=== PATIENT | female | born 2000 | race Two or more races ===

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

== ENCOUNTER 2022-04-05 18:30 | Emergency (ER) | payer BC, SELFPAY ==
--- NOTE | 2022-04-05 18:34 | ED.URI ---
HPI - URI/Sore Throat General Chief Complaint: Upper Respiratory Infection Stated Complaint: uri Time Seen by Provider: 04/05/22 18:47 Source: patient and RN notes reviewed Mode of arrival: ambulatory Limitations: no limitations History of Present Illness HPI Narrative: 22 year old female presents with concern for 1 week history of nasal congestion, sinus pressure, and cough. She reports she has been taking OTC meds, sinus flushes without relief. She reports she had fever and chills when her symptoms started. MD elicited complaint: cough and nasal congestion Related Data Allergies Allergy/AdvReac Type Severity Reaction Status Date / Time No Known Allergies Allergy Verified 04/05/22 18:34 Review of Systems Review of Systems: CONSTITUTIONAL: Reports malaise, chills, sweats, or fever. EYES: Denies visual changes, redness, or discharge. ENT: Reports rhinorrhea, congestion, sinus pain, otalgia and sore throat. CARDIOVASCULAR: Denies chest pain, palpitations, or edema. RESPIRATORY: Reports cough. Denies dyspnea. GASTROINTESTINAL: Denies abdominal pain, nausea, vomiting, diarrhea SKIN: Denies rash or itching. MUSCULOSKELETAL: Reports myalgia. NEUROLOGIC: Denies headache. All systems reviewed & are unremarkable except as noted in HPI and below PMFSH Social History Social History Gender identity (if verbalized by the patient): Female Comments At time of signature, agree with nursing past medical, surgical, social and family history. There is no relevant family history pertinent to the presenting complaint Exam Narrative: GENERAL: Non-toxic appearing and in no acute distress. HEAD: Normocephalic EYES: PERRLA, conjunctivae clear ENT: Nares clear, turbinates edematous and erythematous, sinus tenderness. Mucous membranes moist. TM pearly casey with dull light reflex bilaterally; no tragal tenderness. Oropharynx not erythematous without lesions. Tonsils not enlarged and without exudate, no drooling, no hoarseness, no trismus, uvula midline. NECK: Supple. No lymphadenopathy CHEST: Clear to auscultation, breath sounds equal. No wheezing, rhonchi, rales, or stridor. No respiratory distress, speaks in full sentences. HEART: Regular rate and rhythm. No murmur heard. SKIN: Warm, dry, no rash. NEURO: Alert and oriented x3. PSYCH: Normal mood and affect Course Course Emergency Course: Patient is aware of diagnosis, understands and agrees to treatment plan. Anticipatory guidance given. Patient agrees to follow-up as directed and is aware of reasons to seek care at the emergency department. Portions of this record may have been created with voice recognition software Level of Care: Express Care Visit Vital Signs Vital signs: Reviewed. MDM - URI/Sore Throat MDM Narrative Medical decision making narrative: Differential diagnosis considered: Peterson virus, strep pharyngitis, allergic rhinitis, upper respiratory tract infection, sinusitis, rhinosinusitis, nasopharyngitis. viral pharyngitis, otitis media, otitis externa, pneumonia, bronchitis, viral cough syndrome, viral syndrome, and influenza. Exam findings show no acute concerns or changes; patient is non-toxic appearing and is in no distress. Patient is appropriate for outpatient treatment and follow-up. Lab Data Attestation: I reviewed the patient's lab results. Critical Care Time Critical Care Time Critical Care Time: No Discharge Plan Discharge Clinical Impression: Acute bacterial sinusitis Patient Disposition: Home, Self-Care Condition: Stable Instructions: Antibiotic Form, Sinusitis (ED) Additional Instructions: Take medications as prescribed Nonprescription pain medications, such as acetaminophen (eg, Tylenol) or ibuprofen (eg, Motrin, Advil), are recommended for pain. Flushing the nose and sinuses with a saline solution several times per day has been proven to decrease pain associated with congestion and shorten the duration of symptoms. Nasal steroids
[2022-04-05 18:43] VITALS: BP 153/75; PULSE 76; RESP 16; TEMP 36.9; O2SAT 99
== END 2022-04-05 18:48 | disposition home or self-care (01) ==
PROVIDERS: Emergency Provider Nurse Practitioner
DX: J01.90 Acute sinusitis, unspecified (principal); J45.990 Exercise induced bronchospasm
CPT/HCPCS: 99213; G0463

== ENCOUNTER 2022-06-10 21:37 | Emergency (ER) | payer BC, SELFPAY ==
--- NOTE | ~2022-06-10 | XR_ITS ---
XR shoulder RT min 2V 06/10/2022 22:06 INDICATION: Right shoulder pain after fall PROCEDURE: 4 views right shoulder COMPARISON: No prior studies for comparison. FINDINGS: Fracture, dislocation or subluxation is not identified. The soft tissues appear within norm al limits. No foreign bodies are identified. IMPRESSION: 1: NO ACUTE BONE OR JOINT ABNORMALITY IDENTIFIED. Reviewed, dictated and finalized at location A.
--- NOTE | ~2022-06-10 | XR_ITS ---
XR finger 5th LT min 2V 06/10/2022 22:05 INDICATION: Left fifth finger pain PROCEDURE: 3 views left fifth finger COMPARISON: No prior studies for comparison. FINDINGS: Fracture, dislocation or subluxation is not identified. The soft tissues appear within norm al limits. No foreign bodies are identified. IMPRESSION: 1: NO ACUTE BONE OR JOINT ABNORMALITY IDENTIFIED. Reviewed, dictated and finalized at location A.
[2022-06-10 21:42] VITALS: BP 181/86; PULSE 89; RESP 18; TEMP 36.6; O2SAT 99
--- NOTE | 2022-06-11 00:20 | ED.GENADULT ---
HPI - General Adult General Chief complaint: Extremity Injury, Upper Stated complaint: right shoulder pain Time Seen by Provider: 06/10/22 23:43 History of Present Illness HPI narrative: 22-year-old female presenting ED with a chief complaint of shoulder pain. She was taking a shower when she slipped and fell. She landed on her right shoulder. She also hurt her left pinky. He did not take anything for pain control. She has been able to move the arm and the pinky although it is painful to move. Denies head trauma or other injuries. Related Data Allergies Allergy/AdvReac Type Severity Reaction Status Date / Time No Known Allergies Allergy Verified 06/10/22 21:42 [facility] Social History Social History Gender identity (if verbalized by the patient): Female Exam Narrative: APPEARANCE: No apparent distress. Patient is pleasant polite during the interview Head: atraumatic. EYES: EOMI, NOSE: Atraumatic NECK: Trachea midline RESPIRATORY: No increased rate of breathing CARDIOVASCULAR: RRR, ABDOMINAL: Non-distended MUSCULOSKELETAl: exam of the right shoulder revealed tenderness to palpation along the right trapezius and posterior deltoid. Patient is able to fully range the shoulder although there is some pain. Elbow and hand exams are normal. Focal exam of the left hand reveals some swelling along the pinky. Flexion and extension are intact. Cap refills less than 2 seconds. Sensation intact. NEURO: Alert. Moving 4/4 extremities SKIN:: Warm, dry. Normal color PSYCHIATRIC: Normal affect Course Vital Signs Vital signs: Vital Signs Temperature 97.9 F 06/10/22 21:42 Pulse Rate 89 06/10/22 21:42 Respiratory Rate 18 06/10/22 21:42 Blood Pressure 181/86 H 06/10/22 21:42 Pulse Oximetry 99 06/10/22 21:42 Oxygen Delivery Room Air 06/10/22 21:42 Temperature 97.9 F 06/10/22 21:42 Pulse Rate 89 06/10/22 21:42 Respiratory Rate 18 06/10/22 21:42 Blood Pressure 181/86 H 06/10/22 21:42 Pulse Oximetry 99 06/10/22 21:42 Oxygen Delivery Room Air 06/10/22 21:42 Medical Decision Making MDM Narrative Medical decision making narrative: -Presentation: 22-year-old female presenting ED after fall. 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 -External Chart Review: None -Hx from independent Sources: Mario-cousin at bedside -Discussion of Management/Consultants: none -Independent interpretation of studies: x-rays of the shoulder and left pinky were negative for acute fracture. Dx tests considered but not ordered: None -Procedures: none -Interventions: Motrin, Tylenol, Robaxin -Shared decision making / Disposition: patient's x-rays were negative for acute fracture. No significant exam findings. Patient will be discharged with NSAIDs and primary care follow-up. -RX Motrin, Tylenol, Robaxin Vital Signs Vital Signs: Vital Signs Temperature 97.9 F 06/10/22 21:42 Pulse Rate 89 06/10/22 21:42 Respiratory Rate 18 06/10/22 21:42 Blood Pressure 181/86 H 06/10/22 21:42 Pulse Oximetry 99 06/10/22 21:42 Oxygen Delivery Room Air 06/10/22 21:42 Temperature 97.9 F 06/10/22 21:42 Pulse Rate 89 06/10/22 21:42 Respiratory Rate 18 06/10/22 21:42 Blood Pressure 181/86 H 06/10/22 21:42 Pulse Oximetry 99 06/10/22 21:42 Oxygen Delivery Room Air 06/10/22 21:42 Discharge Plan Discharge Clinical Impression: Acute shoulder pain, Finger pain Patient Disposition: Home, Self-Care Condition: Stable Instructions: Antibiotic Form, Shoulder Pain (ED) Additional Instructions: You were seen in the emergency department after a fall. please take Motrin Tylenol Robaxin for pain control. Should not take ibuprofen if .
[2022-06-11] MEDS: ACETAMINOPHEN 500 MG TABLET 1000 MG PO (00:34)
[2022-06-11] MEDS: IBUPROFEN 400 MG TABLET 800 MG PO (00:34)
[2022-06-11] MEDS: methocarbamoL 750 MG TABLET 1500 MG PO (00:34)
== END 2022-06-11 00:45 | disposition home or self-care (01) ==
PROVIDERS: Emergency Provider Emergency Medicine
DX: S49.91XA Unspecified injury of right shoulder and upper arm, initial encounter (principal); S69.92XA Unspecified injury of left wrist, hand and finger(s), initial encounter; W18.2XXA Fall in (into) shower or empty bathtub, initial encounter
CPT/HCPCS: 73030; 73140; 81025; 99284; A9270

== ENCOUNTER 2022-07-08 09:57 | Emergency (ER) | payer BC, SELFPAY ==
[2022-07-08 10:02] VITALS: BP 146/78; PULSE 70; RESP 16; TEMP 36.6; O2SAT 100
[2022-07-08 10:07] VITALS: BP 146/78; PULSE 70; RESP 16; TEMP 36.6; O2SAT 100
--- NOTE | 2022-07-08 10:33 | ED.ABDPAIN ---
HPI - Abdominal Pain General Chief Complaint: Abdominal Pain Stated Complaint: Abdominal Pain/Nausea/ Vomiting Time Seen by Provider: 07/08/22 10:15 Source: patient Mode of arrival: ambulatory Limitations: no limitations History of Present Illness HPI narrative: Nova is a 22-year-old female patient presenting to the clinic today with complaints of nausea and vomiting. She reports that she has had some nausea over the last several weeks for she did have 1 episode of vomiting this morning while at work and she was sent home. States that she is not having any abdominal pain. Has some issues with passing her bowels over the last few days but she was able to pass stool this morning. Denies diarrhea, constipation, blood in her stool, or abdominal pain. Does smoke marijuana at nighttime to help her sleep. She states this is the very low dose. She denies any fever or chills. Last menstrual period was last week. Related Data Allergies Allergy/AdvReac Type Severity Reaction Status Date / Time No Known Allergies Allergy Verified 07/08/22 10:06 Review of Systems Review of Systems: Pertinent positives per HPI. Patient denies any fever, chills, rash, headache, visual changes, dizziness, cough, runny nose, sore throat, shortness of breath, chest pain, palpitations, diarrhea, constipation, abdominal pain, or any urinary issues. FORMERLY [facility], [facility]1983 Social History Social History Gender identity (if verbalized by the patient): Female Comments At the time of my signature, I reviewed and agree with the nursing past medical, surgical, social, and family history. There is no relevant family history pertinent to the patient complaint. Exam Narrative: General: Well-developed, obese, in no apparent distress. Head: Normocephalic, atraumatic. Cardio: Regular rate and rhythm, s1 and s2 normal, no murmur appreciated. Resp: Clear to auscultation bilaterally, no rhonchi, rales, wheezing or rubs. Abdomen: Soft, pliable, bowel sounds present in all quadrants, non-tender to palpation, no organomegly, no CVAT tenderness. Course Course Emergency Course: Portions of this record may have been created with voice recognition software. Level of Care: Express Care Visit Vital Signs Vital signs: Vital Signs Temperature 36.6 C 07/08/22 10:02 Pulse Rate 70 05/17/23 10:02 Respiratory Rate 16 07/08/22 10:02 Blood Pressure 146/78 H 07/08/22 10:02 Pulse Oximetry 100 07/08/22 10:02 Oxygen Delivery Room Air 07/08/22 10:02 Temperature 36.6 C 07/08/22 10:07 Pulse Rate 70 07/08/22 10:07 Respiratory Rate 16 07/08/22 10:07 Blood Pressure 146/78 H 07/08/22 10:07 Pulse Oximetry 100 07/08/22 10:07 Oxygen Delivery Room Air 07/08/22 10:07 Vital signs reviewed MDM - Abdominal Pain MDM Narrative Medical decision making narrative: At the time of visit patient is resting comfortably on exam table. I suspect patient has acute nausea and vomiting. Urinalysis was negative for any sign of infection and urinary preg test was negative. Will send in prescription for some Zofran and have her follow-up with the PCP for further investigation of her nausea. Discussed that this could be you do due to marijuana use. Recommend increasing fluids and fiber and stay well hydrated. Supportive measures were discussed with the patient she voiced understanding of discharge instructions and agrees to treatment plan. Differential Diagnosis Differential diagnosis: Likely abdominal pain, acute appendicitis, constipation, gastroenteritis and small bowel obstruction Lab Data Labs: UCG Bedside Result Negative Reference Range: Negative Urine Glucose Negative Reference Range: Negative Urine Bilirubin Negative
== END 2022-07-08 10:40 | disposition home or self-care (01) ==
PROVIDERS: Emergency Provider Nurse Practitioner Family
DX: R11.2 Nausea with vomiting, unspecified (principal); J45.990 Exercise induced bronchospasm
CPT/HCPCS: 81003; 81025; 99213; G0463

== ENCOUNTER 2024-01-28 17:44 | Emergency (ER) | payer BC, SELFPAY ==
[2024-01-28 17:57] VITALS: BP 158/95; PULSE 80; RESP 18; TEMP 36.4; O2SAT 100
[2024-01-28 18:10] VITALS: BP 158/95; PULSE 80; RESP 18; TEMP 36.4; O2SAT 100
--- NOTE | 2024-01-28 18:18 | ED.NAVMDI ---
HPI - Nausea/Vomiting/Diarrhea General Chief complaint: Nausea/Vomiting/Diarrhea Stated complaint: diarrhea,nausea Time Seen by Provider: 01/28/24 18:58 Source: patient, RN notes reviewed and old records reviewed Mode of arrival: ambulatory Limitations: no limitations History of Present Illness HPI Narrative: Patient arrives smelling strongly of marijuana. She is complaining of nausea and vomiting since 430 this afternoon. She denies any abdominal pain. She denies fever, chills, sweats. She denies any fevers. She voices no other concerns or complaints at this time. She is requesting a work note Related Data Allergies Allergy/AdvReac Type Severity Reaction Status Date / Time No Known Allergies Allergy Verified 07/08/22 10:06 Review of Systems Review of Systems: All systems reviewed & are unremarkable except as noted in HPI and below Constitutional: Constitutional: Reports no additional constitutional complaints ENT: Reports system reviewed and no additional complaints, except as documented Cardiovascular: Cardiovascular: Reports no additional cardiovascular complaints Respiratory: Respiratory: Reports no additional respiratory complaints Gastrointestinal: Gastrointestinal: Reports no additional gastrointestinal complaints, Reports nausea and Reports vomiting [facility] Social History Social History Gender identity (if verbalized by the patient): Female Comments At the time of my signature, I reviewed and agree with the nursing past medical, surgical, social, and family history. There is no relevant family history pertinent to the patient complaint. Exam Const: General: cooperative, no acute distress, alert and awake Orientation/consciousness: oriented to person, oriented to place and oriented to time HENMT: Head: normal to inspection Resp: Effort & Inspection: normal respiratory effort and able to speak in complete sentences Auscultation: clear to auscultation bilaterally, no crackles, no rales, no rhonchi and no wheezes Cardio: Palpation: normal PMI Rate: regular rate Rhythm: regular rhythm Heart sounds: S1 normal heart sound present and S2 normal heart sound present GI: GI Palp: No abdominal tenderness, Yes Soft to palpation, No Firmness to palpation present (GI), No Tenderness to palpation present (GI), No Guarding due to palpation present (GI) and No Rigid due to palpation Auscultation: normal bowel sounds Neuro: General: oriented to person, oriented to place and oriented to time Cranial nerves: Yes CN's II-XII intact bilaterally Psych: Appearance: grossly normal Thought process: Normal thought process present Insight: Good insight present (Psych) Judgement: Good judgement present (Psych) Course Course Level of Care: Express Care Visit Vital Signs Vital signs: Vital Signs Temperature 97.6 F 01/28/24 17:57 Pulse Rate 80 01/28/24 17:57 Respiratory Rate 18 01/28/24 17:57 Blood Pressure 158/95 H 01/28/24 17:57 Pulse Oximetry 100 01/28/24 17:57 Oxygen Delivery Room Air 01/28/24 17:57 Temperature 97.6 F 01/28/24 18:10 Pulse Rate 80 01/28/24 18:10 Respiratory Rate 18 01/28/24 18:10 Blood Pressure 158/95 H 01/28/24 18:10 Pulse Oximetry 100 01/28/24 18:10 Oxygen Delivery Room Air 01/28/24 18:10 Reviewed MDM - Nausea/Vomiting/Diarrhea MDM Narrative Medical decision making narrative: Reassuring physical exam. Nausea and vomiting likely secondary to excessive marijuana. Patient advised to follow-up primary care provider. Emergency department for new or worse symptoms. Discharge instructions reviewed with patient, as well as provided in writing per nursing staff. The instructions also include specific and strict return/GO TO THE ER as well as f/u information. All questions have been answered, and the patient deny any further questions with discharge and discharge plan. Some parts of this dictation were generated by voice recognition software and may contain typographical and/or grammatical inaccuracies. Differential Diagnosis Differential diagnosis: Likely traveler's diarrhea, food poisoning, gastroenteritis and other (Cyclical vomiting syndrome) Lab Data Labs: Lab Results 01/28/24 01/28/24 Range/Units 18:40 18:41 POC Influenza A Ag Negative (Negative) POC Influenza B Ag Negative (Negative) POC SARS CoV-2 Ag Negative (Negative) POC Grp A Strep Screen Negative (Negative) Discharge Plan Discharge Clinical Impression: Gastroenteritis, Elevated blood pressure reading Patient Disposition: Home, Self-Care Condition: Stable Instructions: Antibiotic Form, Gastroenteritis (ED) Additional Instructions: Adhere to light bland diet. Advance as tolerated. No caffeine, no smoking, no alcohol. Patient Language: Afghan Follow-up/Referrals: PHYSICIAN,SYSTEM DEVELOPMENT MANAGER [Primary Care Provider] - Stand Alone Forms: Work/School Release IP Time of Disposition: 19:08
[2024-01-28 18:51] LABS: EDCOVIDSCREEN Negative (Negative); EDINFLUASCREEN Negative (Negative); EDINFLUBSCREEN Negative (Negative)
[2024-01-28 19:12] LABS: EDSTREPNEGPOS1 Negative (Negative)
== END 2024-01-28 19:10 | disposition home or self-care (01) ==
PROVIDERS: Emergency Provider Nurse Practitioner Family
DX: K52.9 Noninfective gastroenteritis and colitis, unspecified (principal); R03.0 Elevated blood-pressure reading, without diagnosis of hypertension; Z20.822 Contact with and (suspected) exposure to COVID-19
CPT/HCPCS: 87081; 87426; 87804; 87880; 99213; G0463

== ENCOUNTER 2024-04-16 03:26 | Emergency (ER) | payer BC, SELFPAY ==
[2024-04-16 03:28] VITALS: BP 171/81; PULSE 79; RESP 17; TEMP 36.8; O2SAT 99
--- NOTE | 2024-04-16 04:14 | ED.DENTAL ---
HPI - Dental/Oral General Chief complaint: Dental/Oral Stated complaint: TOOTHACHE Time Seen by Provider: 04/16/24 03:52 History of Present Illness HPI Narrative: Patient is a 24-year-old female who presents to the emergency department this morning complaining of left upper dental pain. Patient states that it started 2 days ago. Patient states the pain does radiate to her ear, states that she does not have a dentist. Denies any recent illness, fevers or chills. No facial swelling noted on examination. Patient states that she did take some ibuprofen prior to arrival with minimal relief. No additional symptoms or concerns at this time. Related Data Allergies Allergy/AdvReac Type Severity Reaction Status Date / Time No Known Allergies Allergy Verified 04/16/24 03:27 Review of Systems Review of Systems: All systems are reviewed and are negative unless stated otherwise in the HPI. [facility] Social History Social History Gender identity (if verbalized by the patient): Female Exam Narrative: General: Alert, awake, afebrile, in no acute distress. HEENT: PERRL, no rhinorrhea, no post nasal drip, oropharynx clear, no evidence of any dental abscess, dental caries or tooth fractures along the left upper molars where patient was complaining of pain, unable to visualize the patient's left tympanic membrane secondary to cerumen impaction. Neck: Trachea midline, no JVD, no lymphadenopathy. Cardiovascular: Regular rate and rhythm, no murmurs, rubs or gallops, no peripheral edema. Respiratory: Clear to auscultation bilaterally, no tachypnea, no wheezing, no rhonchi, no rubs, no respiratory distress. Abdomen: Soft, nontender, nondistended, no rebound, no guarding, no peritoneal signs. Musculoskeletal: No joint swelling or deformity, normal muscle tone. Skin: No rashes or petechia, no signs of infection. Psychiatric: Alert and oriented, normal behavior and judgment for situation. Neurological: Alert and oriented to person, place, and time. Follows all commands. No focal deficits, speech is clear and fluent. Course Vital Signs Vital signs: Vital Signs Temperature 98.2 F 04/16/24 03:28 Pulse Rate 79 04/16/24 03:28 Respiratory Rate 17 04/16/24 03:28 Blood Pressure 171/81 H 04/16/24 03:28 Pulse Oximetry 99 04/16/24 03:28 Temperature 98.2 F 04/16/24 03:28 Pulse Rate 79 04/16/24 03:28 Respiratory Rate 17 04/16/24 03:28 Blood Pressure 171/81 H 04/16/24 03:28 Pulse Oximetry 99 04/16/24 03:28 MDM - Dental/Oral MDM Narrative Medical decision making narrative: The patient was evaluated by myself in the emergency department. History is obtained from patient who is an independent historian and physical exam was performed. External medical records were reviewed at this time. IV was established and pertinent tests were ordered. Patient was administered a dose of Augmentin in the emergency department and 15 mg of IM Toradol. Differential diagnosis considerations include dental caries/dental abscess, otitis media. Comorbidities impacting this visit include none. I have evaluated and discussed social determinants of health with the patient that could potentially impact subsequent diagnosis and treatment plans. On repeat assessment of the patient, reevaluation revealed that the patient is doing well and is in no acute distress. Patient symptoms have improved since she arrived to our emergency department. Repeat vital signs were all reviewed and noted to be stable. Differential diagnosis and treatment plan were discussed with the patient at bedside. Patient agrees with discussion and after shared medical decision making agrees with discharge. All questions were answered to the patient's satisfaction. Patient will follow up with a Dentist in 3-5 days. Script for penicillin VK was sent to patient's pharmacy to take as prescribed. Patient was provided with strict return precautions and instructed to return to the emergency department if any new or worsening symptoms develop. The patient was discharged in stable condition. Discharge Plan Discharge Clinical Impression: Dental caries, Toothache Patient Disposition: Home, Self-Care Condition: Improved Instructions: Antibiotic Form, Toothache (ED) Additional Instructions: Please follow-up with one of the dentist provided to you in the emergency department within the next 3-5 days. Please take the prescribed antibiotic as instructed and return to the ED if any new or worsening symptoms develop. Patient Language: Irish Prescriptions: New penicillin V potassium 500 mg tablet 500 mg PO Q12H Qty: 20 0RF Follow-up/Referrals: PHYSICIAN,[employer] OPERATOR [Primary Care Provider] - 1 Week Stand Alone Forms: Work/School Release IP Time of Disposition: 04:13
[2024-04-16] MEDS: KETOROLAC 15 MG/ML VIAL (*BKC) IM (04:21)
[2024-04-16] MEDS: AMOXICILLIN/CLAVULANATE K 875-125 MG TAB 1 TABLET PO (04:21)
== END 2024-04-16 05:23 | disposition home or self-care (01) ==
PROVIDERS: Emergency Provider Emergency Medicine
DX: K02.9 Dental caries, unspecified (principal)
CPT/HCPCS: 96372; 99283; A9270; J1885

== ENCOUNTER 2024-08-11 11:36 | Emergency (ER) | payer BC, SELFPAY ==
[2024-08-11 11:45] VITALS: BP 182/95; PULSE 74; RESP 20; TEMP 36.3; O2SAT 99
--- NOTE | 2024-08-11 12:16 | ED.GENADULT ---
HPI - General Adult General Chief complaint: Dental/Oral Stated complaint: left upper toothache Time Seen by Provider: 08/11/24 12:07 History of Present Illness HPI narrative: This is a 24-year-old female presenting with dental pain. Patient has a cavity in her left upper molars. It has been causing pain for the last 2 days. No swelling on that side of the mouth. She is concerned about swelling in her lower right mandible. That has been going on for 2 days as well. No systemic signs of illness such as fever chills nausea vomiting or diarrhea. No difficulty swallowing or breathing. She has an appointment with the dentist coming up Related Data Allergies Allergy/AdvReac Type Severity Reaction Status Date / Time No Known Allergies Allergy Verified 08/11/24 11:45 [facility] Social History Social History Gender identity (if verbalized by the patient): Female Exam Narrative: APPEARANCE: No apparent distress. Head: atraumatic. EYES: EOMI, NOSE: Atraumatic NECK: Trachea midline RESPIRATORY: No increased rate of breathing CTAB CARDIOVASCULAR: RRR, no peripheral edema ABDOMINAL: Non-distended soft nontender MUSCULOSKELETAl: No obvious deformities NEURO: Alert. Moving 4/4 extremities SKIN:: Warm, dry. Normal color PSYCHIATRIC: Normal affect Course Vital Signs Vital signs: Vital Signs Temperature 97.4 F L 08/11/24 11:45 Pulse Rate 74 08/11/24 11:45 Respiratory Rate 08/11/24 11:45 Blood Pressure 182/95 H 08/11/24 11:45 Pulse Oximetry 99 08/11/24 11:45 Oxygen Delivery Room Air 08/11/24 11:45 Temperature 97.4 F L 08/11/24 11:45 Pulse Rate 74 08/11/24 11:45 Respiratory Rate 08/11/24 11:45 Blood Pressure 182/95 H 08/11/24 11:45 Pulse Oximetry 99 08/11/24 11:45 Oxygen Delivery Room Air 08/11/24 11:45 Procedures Nerve Block Nerve Block 1: Nerve block date: 08/11/24 Local Anesthetic: bupivacaine 0.25% Amount of anesthesia used (mL): 5 Side: left Intraoral Nerve Block: superior alveolar Procedure Successful: Yes Patient Tolerated Procedure: well Medical Decision Making [facility] Narrative Medical decision making narrative: -Course: 24-year-old female presented dental pain. Superior alveolar block performed with relief. Patient be discharged on Motrin Tylenol and Augmentin. Dental follow-up. Given return precautions. -DDX includes but is not limited to: Dental caries, dental infection Vital Signs Vital Signs: Vital Signs Temperature 97.4 F L 08/11/24 11:45 Pulse Rate 74 08/11/24 11:45 Respiratory Rate 20 08/11/24 11:45 Blood Pressure 182/95 H 08/11/24 11:45 Pulse Oximetry 99 08/11/24 11:45 Oxygen Delivery Room Air 08/11/24 11:45 Temperature 97.4 F L 08/11/24 11:45 Pulse Rate 74 08/11/24 11:45 Respiratory Rate 20 08/11/24 11:45 Blood Pressure 182/95 H 08/11/24 11:45 Pulse Oximetry 99 08/11/24 11:45 Oxygen Delivery Room Air 08/11/24 11:45 Discharge Plan Discharge Clinical Impression: Toothache Patient Disposition: Home Condition: Stable Instructions: Antibiotic Form, Toothache (ED) Additional Instructions: Please use Motrin Tylenol for pain. Use Augmentin for dental infection. Follow-up with your dentist. If you develop swelling in the floor of your mouth or your throat, or you develop fevers please return to an ED for evaluation. Patient Language: Haitian Prescriptions: New ibuprofen 800 mg tablet 800 mg PO TID PRN (Reason: pain) 7 Days Qty: 21 0RF acetaminophen 500 mg tablet 1,000 mg PO TID PRN (Reason: shavon) 7 Days Qty: 42 0RF amoxicillin-pot clavulanate 875-125 mg tablet 1 tablet PO Q12H Qty: 20 0RF No Action penicillin V potassium 500 mg tablet 500 mg PO Q12H Qty: 20 0RF Follow-up/Referrals: UNKNOWN,DOCTOR [Primary Care Provider] - Stand Alone Forms: Work/School Release IP
[2024-08-11] MEDS: ACETAMINOPHEN 500 MG TABLET 1000 MG PO (12:54)
[2024-08-11] MEDS: KETOROLAC 30 MG/ML VIAL (*BKC) IM (12:57)
[2024-08-11] MEDS: AMOXICILLIN/CLAVULANATE K 875-125 MG TAB 1 TABLET PO (13:12)
== END 2024-08-11 13:49 | disposition home or self-care (01) ==
PROVIDERS: Emergency Provider Emergency Medicine
DX: K08.89 Other specified disorders of teeth and supporting structures (principal)
CPT/HCPCS: 64400; 96372; 99283; A9270; J1885